=== PATIENT | female | born 1990 | race Caucasian/White ===

== ENCOUNTER 2023-09-06 08:32 | Outpatient (REF) | payer OTHER, SELFPAY ==
--- NOTE | ~2023-09-06 | US_ITS ---
EXAMINATION: US PELVIS CLINICAL INFORMATION: Check IUD, irregular menses, last menstrual period 10 days ago. IUD check, IUD inserted 2016. COMPARISON: None available. TECHNIQUE: Ultrasound of the pelvis is performed using both transabdominal and transvaginal transducers along with Doppler. Transvaginal imaging is performed due to inadequate visualization transabdominally. FINDINGS: Uterus measures 7.2 x 3.3 x 5.4 cm. No discrete fibroid appreciated. Endometrial thickness is 6 mm. IUD identified. Right arm of IUD appears to be located within the myometrium. Left arm of the IUD appears also to project within the myometrium. There appear to be discontinuities within the IUD at the level of the [id number] uterine segment. Overall, abnormal appearance of IUD positioning. Right ovary measures 2.3 x 2.6 x 2.4 cm, volume 5.4 mL. Left ovary measures 1.9 x 2.3 x 2.0 cm, volume 4.7 mL. No significant free fluid. US/US pelvic and transvaginal IMPRESSION: IUD appears abnormal in position as detailed above. This study was presented today September 12, 2023 for interpretation. [facility] staff will provide results to referring provider at this time.
== END 2023-09-06 08:33 | disposition home or self-care (01) ==
LOC: HO.UMASIMG 08:32
PROVIDERS: Visit Provider Registered Nurse
DX: Z30.431 Encounter for routine checking of intrauterine contraceptive device (principal); N92.6 Irregular menstruation, unspecified
CPT/HCPCS: 76830; 76856